=== PATIENT | female | born 1960 | race Caucasian/White ===

== ENCOUNTER 2021-08-08 20:00 | Emergency (ER) | payer SELFPAY ==
[~2021-08-08] VITALS: Ht 157.5 cm; Wt 86.2 kg
[2021-08-08 21:26] VITALS: BP 157/85
--- NOTE | 2021-08-08 21:30 | NUR ---
TO LOBBY A/W BED AMBULATORY
--- NOTE | 2021-08-08 21:50 | NUR ---
PT TAKEN TO XRAY
--- NOTE | 2021-08-08 22:43 | NUR ---
PT TAKEN TO BED 1
[2021-08-09 00:14] VITALS: BP 157/85
--- NOTE | 2021-08-09 00:14 | NUR ---
Patient discharged with v/s stable. Written and verbal after care instructions given and explained. Patient verbalized understanding. Ambulatory with steady gait. All questions addressed prior to discharge. Advised to follow up with PMD.
== END 2021-08-08 23:26 | disposition home or self-care (01) ==
LOC: MED 20:00
DX: S93.601A Unspecified sprain of right foot, initial encounter (principal); W18.40XA Slipping, tripping and stumbling without falling, unspecified, initial encounter; Y93.89 Activity, other specified; Y92.89 Other specified places as the place of occurrence of the external cause; Y99.8 Other external cause status
CPT/HCPCS: 73630; 99283